=== PATIENT | male | born 1990 | race Caucasian/White ===

== ENCOUNTER 2018-08-03 19:13 | Emergency (ER) | payer SELFPAY ==
[~2018-08-03] VITALS: Ht 175.3 cm; Wt 77.1 kg
[2018-08-03 19:38] VITALS: Ht 175.3 cm; Wt 77.1 kg
[2018-08-03 20:04] LABS: BASOPHILS 0.4 % (0-2); EOSINOPHILS 2.2 % (0-7); HEMOGLOBIN 15.3 g/dL (13.5-17.5); IMMATURE GRANULOCYTES 0.4 % (0-5); LYMPHOCYTES 49.5 % (15-50); MCH 32.7 pg (26.0-34.0); MCHC 35.6 g/dL (31.0-37.0); MCV 91.9 fL (80.0-100.0); MEAN PLATELET VOLUME 9.3 fL (7.4-10.4); MONOCYTES 6.3 % (2-11); NEUTROPHILS 41.2 % (40-80); PLATELET COUNT 243 10x3/uL (130-400); RBC 4.68 10x6/uL (4.20-6.10); RDW 12.3 % (11.5-14.5); WBC 5.1 10x3/uL (4.8-10.8)
[2018-08-03 20:19] LABS: ALKALINE PHOSPHATASE 74 U/L (46-116); ALT (SGPT) 37 U/L (10-68); BILIRUBIN - TOTAL 0.27 mg/dL (0.2-1.3); CALC OSMOLALITY 286 mosm/kg (275-300); CALCIUM 8.4 mg/dL (8.5-10.1); CARBON DIOXIDE 25.9 mmol/L (21.0-32.0); CHLORIDE - SERUM 105 mmol/L (98-107); GLUCOSE 122 mg/dL (74-106); LIPASE 129 U/L (73-393); POTASSIUM - SERUM 3.5 mmol/L (3.5-5.1); SODIUM 143 mmol/L (136-145); UREA NITROGEN 15 mg/dL (7-18); eGFR NON AFRICAN AMERICAN > 90 mL/min (90-120)
[2018-08-03] MEDS ORDERED: OMEPRAZOLE20 M1 PO (23:37)
[2018-08-03 23:53] VITALS: BP 118/81
== END 2018-08-03 23:53 | disposition home or self-care (01) ==
LOC: D.ER 19:13
PROVIDERS: Family Medicine
DX: R10.13 Epigastric pain (principal); R11.0 Nausea